=== PATIENT | male | born 1965 | race Caucasian/White ===

== ENCOUNTER 2018-06-03 15:10 | Emergency (ER) | payer OTHER ==
[~2018-06-03] VITALS: Ht 170.2 cm; Wt 82.6 kg
[~2018-06-03 15:10] MED LIST: [UNRECOGNIZED DRUG - CODE]
[2018-06-03 15:22] VITALS: BP 143/89
--- NOTE | 2018-06-03 15:31 | NUR ---
52 YO M BIB SELF W/ C/O RUQ PAIN X 3 DAYS, NON-RADIATING; BLOATED FEELING. ADDS RIGHT SIDED LOWER BACK ACHE. LAST BM TODAY, NO STRAINING. PT REPORTS THAT THE DISCOMFORT IS WORSE IN THE MORNINGS. DENIES N/V/D/FEVER. AAOX4, GCS 15, CMS INTACT. RR EVEN AND UNLABORED, LUNGS BL CLEAR. ABD SOFT, NON-TENDER. BOWEL SOUNDS ACTIVE X4. ER MD NOTIFIED. PT NEEDS MET, SAFETY PRECAUTIONS IN PLACE. WILL CONTINUE TO MONITOR.
[2018-06-03] MEDS ORDERED: NACL 0.9% 1,000 ML IV SCH (16:07)
[2018-06-03] MEDS ORDERED: KETOROLAC 30 MG/ML VIAL IVP ONE (16:10)
--- NOTE | 2018-06-03 16:12 | NUR ---
PT TAKEN TO CT VIA GURNY BY RADIOLOGY [facility].
--- NOTE | 2018-06-03 16:22 | NUR ---
PT BACK IN FROM CT VIA GURNY BY [facility].
[2018-06-03 16:29] LABS: APPEARANCE,URINE CLEAR (CLEAR); BILIRUBIN,URINE NEGATIVE (NEGATIVE); COLOR,URINE YELLOW (YELLOW); LEUKOCYTE ESTERASE ,URINE NEGATIVE (NEGATIVE); NITRITE, URINE NEGATIVE (NEGATIVE); UGLUCOSE NEGATIVE (NEGATIVE)
[2018-06-03 16:30] LABS: BLOOD, URINE TRACE (NEGATIVE)
[2018-06-03 16:38] LABS: BASOPHILS % (AUTO) 0.2 % (0.0-2.0); EOSINOPHILS # (AUTO) 0.1 K/uL (0-0.4); HEMATOCRIT 43.7 % (36-52); HEMOGLOBIN 14.5 g/dL (12.0-18.0); LYMPHOCYTES # (AUTO) 1.6 K/uL (2.0-11.5); LYMPHOCYTES % (AUTO) 20.4 % (20.5-51.1); MEAN CORPUSCULAR HEMOGLOBIN 32 pg (27-31); MEAN CORPUSCULAR HGB CONC 33 g/dL (33-37); MEAN CORPUSCULAR VOLUME 94.6 fL (80-94); MONOCYTES # (AUTO) 1.2 K/uL (0.8-1.0); MONOCYTES % (AUTO) 15.6 % (1.7-9.3); NEUTROPHILS # (AUTO) 4.8 K/uL (1.8-7.7); NEUTROPHILS % (AUTO) 62.8 % (42.2-75.2); PLATELET COUNT (AUTO) 217 K/uL (140-450); RED BLOOD CELL COUNT(AUTO) 4.62 MIL/uL (4.20-6.10); RED CELL DISTRIBUTION WIDTH 12.6 % (11.6-13.7); WHITE BLOOD COUNT (AUTO) 7.7 K/uL (4.8-10.8)
[2018-06-03 16:58] LABS: ALBUMIN 3.8 g/dL (3.4-5.0); ANION GAP 11.8 (8-16); CARBON DIOXIDE 29.2 mmol/L (21-32); CREATININE 0.9 mg/dL (0.7-1.3); TOTAL BILIRUBIN 0.7 mg/dL (0.0-1.0)
[2018-06-03 17:20] VITALS: BP 140/85
--- NOTE | 2018-06-03 17:20 | NUR ---
Patient discharged with v/s stable. Written and verbal after care instructions given and explained. Patient alert, oriented and verbalized understanding of instructions. Ambulatory with steady gait. All questions addressed prior to discharge. ID band removed. IV removed; cath intact; pressure and bandage applied. Patient advised to follow up with PMD. Rx of FLAGYL, CIPRO, AND MOTRIN given. Patient educated on indication of medication including possible reaction and side effects. Opportunity to ask questions provided and answered.
== END 2018-06-03 17:20 | disposition home or self-care (01) ==
LOC: MED 15:10
DX: K57.92 Diverticulitis of intestine, part unspecified, without perforation or abscess without bleeding (principal); Z79.899 Other long term (current) drug therapy
CPT/HCPCS: 36415; 74176; 80053; 81003; 83690; 85025; 96374; 99284; J1885; J7030

== ENCOUNTER 2018-11-12 22:56 | Emergency (ER) | payer OTHER ==
[~2018-11-12] VITALS: Ht 165.1 cm; Wt 79.8 kg
[2018-11-12 23:10] VITALS: BP 124/91
--- NOTE | 2018-11-12 23:15 | NUR ---
PT AMBULATED BACK TO [facility]
--- NOTE | 2018-11-12 23:51 | NUR ---
PT TAKEN TO BED 11
--- NOTE | 2018-11-13 | NUR ---
PT IS A 53 Y/O MALE WHO PRESENTS TO THE ED C/O RECTAL BLEEDING. PER PATIENT, PT HAD A BIOPSY DONE AT [place] AND REPORTS BLEEDING IN THAT AREA S/P BIOPSY OF PROSTATE. PT DENIES PAIN AT THIS TIME. PT DENIES CP, SOB, DENIES N/V REPORTS DIARRHEA. PT AWAKE AND ALERT, RR EVEN/UNLABORED. PT REPOSITIONED FOR COMFORT, BED IN LOWEST POSITION. ER MD DR. CARCAMO NOTIFIED. WILL CONTINUE TO MONITOR. NKA DEB HX: NONE
--- NOTE | 2018-11-13 00:20 | NUR ---
Dr. Lopez evaluating patient at bedside.
[2018-11-13 01:05] VITALS: BP 128/89
--- NOTE | 2018-11-13 01:05 | NUR ---
Patient discharged with v/s stable. Written and verbal after care instructions given and explained. Patient alert, oriented and verbalized understanding of instructions. Ambulatory with steady gait. All questions addressed prior to discharge. ID band removed. Patient advised to follow up with PMD. Rx of COLACE 100MG given. Patient educated on indication of medication including possible reaction and side effects. Opportunity to ask questions provided and answered.
== END 2018-11-13 01:05 | disposition home or self-care (01) ==
LOC: MED 22:56
DX: K91.840 Postprocedural hemorrhage of a digestive system organ or structure following a digestive system procedure (principal); Z79.899 Other long term (current) drug therapy
CPT/HCPCS: 99283